=== PATIENT | female | born 1970 | race African-American/Black ===

== ENCOUNTER 2024-07-26 17:50 | Inpatient (IN) | payer OTHER ==
[~2024-07-26] VITALS: Ht 170.2 cm; Wt 85.5 kg
--- NOTE | 2024-07-26 18:26 | ED.PDOC ---
History of present illness HPI Comments 53-year-old female who came to ER for abdominal pain. Patient states for the past week, she has been having abdominal pain radiating up her midsternal area. States she has GERD and she feels like it is acting up again. She is also complaining of headaches, dizziness, excessive urination and thirst. Noted also blurring of vision and oral pain. Claims she was never diagnosed to have diabetes. Blood sugar upon arrival of read tn. Chief Complaint: Abdominal Pain Time Seen by MD: 18:25 History of present illness: Nurses Notes Allergies: Coded Allergies: Morphine (Verified Allergy, Unknown, 07/26/24) Information Source: Patient Mode of Arrival: Ambulatory Timing: Days Duration: Intermittent Prehospital treatment: None [place]: Shaky Symptoms: Anxious, Shaky History of: None Associated signs and symptoms: Headache, Abdominal Pain, Nausea, Blurred Vision Past Medical History PAST MEDICAL HISTORY: Cancer (Breast cancer), HTN, PE Surgical History: Denies all surgeries PATIENT FINANCIAL SERVICES SPECIALIST History: Denies all PATIENT FINANCIAL SERVICES SPECIALIST Hx Family History Family History: Reviewed,noncontributory to illness Social History Smoker: Non-Smoker Alcohol: Denies ETOH Use Drugs: Denies Drug Use Lives In: Home Constitutional: denies: chills, diaphoresis, fatigue, fever, malaise, sweats, weakness, others EENTM: reports: blurred vision, others (oral pain); denies: double vision, ear bleeding, ear discharge, ear drainage, ear pain, ear ringing, eye pain, eye redness, hearing loss, mouth pain, mouth swelling, nasal discharge, nose bleedi ng, nose congestion, nose pain, photophobia, tearing, throat pain, throat swelling, voice changes Respiratory: denies: cough, hemoptysis, orthopnea, SOB at rest, shortness of breath, SOB with excertion, stridor, wheezing, others Cardiovascular: denies: chest pain, dizzy spells, diaphoresis, Dyspnea on exertion, edema, irregular heart beat, left arm pain, lightheadedness, palpitations, PND, syncope, others Gastrointestinal: reports: abdominal pain, nausea; denies: abdomen distended, blood streaked bowels, constipated, diarrhea, dysphagia, difficulty swallowing, hematemesis, melena, poor appetite, poor fluid intake, rectal bleeding, rectal pain, vomiting, others Genitourinary: denies: abnormal vagina bleeding, burning, dyspareunia, dysuria, flank pain, frequency, hematuria, incontinence, pain, , vagina discharge, urgency, others Neurological: reports: dizziness, headache; denies: fainting, left sided numbness, left sided weakness, numbness, paresthesia, pre-existing deficit, right sided numbness, right sided weakness, seizure, speech problems, tingling, tremors, weakness, others Musculoskeletal: denies: back pain, gout, joint pain, joint swelling, muscle pain, muscle stiffness, neck pain, others Integumetry: denies: bruises, change in color, change in hair/nails, dryness, laceration, lesions, lumps, rash, wounds, others Allergic/Immunocompromised: denies: Difficulty Healing, Frequent Infections, Hives, Itching, others Hematologic/Lymphatic: denies: anemia, blood clots, easy bleeding, easy bruising, swollen glands, others Endocrine: reports: excessive thirst, excessive urination; denies: excessive hunger, excessive sweating, flushing, intolerance to cold, intolerance to heat, unexplained weight gain, unexplained weight loss, others Psychiatric: denies: anxiety, bipolar disorder, depression, hopeless, panic disorder, schizophrenia, sleepless, suicidal, others Physical Exam General Appearance: Moderate Distress, Normal HEENT: Normal ENT Inspection, Pharynx Normal, TMs Normal Neck: Full Range of Motion, Non-Tender, Normal, Normal Inspection Respiratory: Chest Non-Tender, Lungs Clear, No Accessory Muscle Use, No Respiratory Distress, Normal Breath Sounds Cardiovascular: No Edema, No JVD, No Murmur, No Gallop, Normal Peripheral Pulses, Tachycardia Breast Exam: Deferred Gastrointestinal: No Organomegaly, Non Tender, No Pulsatile Mass, Normal Bowel Sounds, Soft Genitalia: Deferred Pelvic: Deferred Rectal: Deferred Extremities: No calf tenderness, Normal capillary refill, Normal inspection, Normal range of motion, Non-tender, No pedal edema Musculoskeletal : Apperance: Normal Neurologic: Alert, semiconductor bonder II-XII nml as Tested, No Motor Deficits, Normal Affect, Normal Mood, No Sensory Deficits Cerebellar Function: Normal Reflexes: Normal Skin: Dry, Normal Color, Warm Lymphatic: No Adenopathy Was a procedure done? Was a procedure done?: No Differential Diagnosis (DM) Differential Diagnosis: Dehydration, DKA, Electrolyte Abnormality, Gastritis, Gastroenteritis, Hyperglycemia, UTI X-Ray, Labs, Meds, VS Vital Signs Date Time Temp Pulse Resp B/P (MAP) Pulse Ox O2 Delivery O2 Flow Rate FiO2 07/26/24 18:21 100 07/26/24 18:16 97.2 111 16 137/93 (108) 96 Lab Test 07/26/24 18:55 07/26/24 18:52 07/26/24 18:30 Range/Units Blood Gas Specimen Type Venous Blood Gas Sample Site Vbg - n/a Blood Gas Patient Temperature 37.0 Arterial Blood Date Drawn [id number] Jarad Test N/a Venous Blood pH 7.381 7.320-7.430 Venous Blood pCO2 at Patient Temp 47.3 38.0-54.0 mmHg Venous Blood pO2 at Patient Temp 37.4 23.0-48.0 mmHg Venous Blood HCO3 27.4 22.0-29.0 mmol/L Venous Blood Base Excess 1.6 -2.0-3.0 mmol/L Blood Gas Liter Flow 0.00 Blood Gas Modality Room air FiO2 % 21.0 Blood Gas Comments POC Glucose > 600 *H 70-106 mg/dl White Blood Count 7.5 4.4-10.8 10^3/uL Red Blood Count 4.52 4.0-5.20 10^6/uL Hemoglobin 14.5 12.2-16.2 g/dL Hematocrit 44.9 36.0-46.0 % Mean Corpuscular Volume 99.4 80.0-100.0 fL Mean Corpuscular Hemoglobin 32.2 H 28.0-32.0 pg Mean Corpuscular Hemoglobin Concent 32.4 32.0-36.0 g/dL Red Cell Distribution Width 15.1 H 11.8-14.3 % Platelet Count 210 140-450 10^3/uL Mean Platelet Volume 8.9 6.9-10.8 fL Neutrophils (%) (Auto) 70.3 37.0-80.0 % Lymphocytes (%) (Auto) 21.9 10.0-50.0 % Monocytes (%) (Auto) 6.7 0.0-12.0 % Eosinophils (%) (Auto) 0.0 0.0-7.0 % Basophils (%) (Auto) 1.1 0.0-2.0 % Neutrophils # (Auto) 5.2 1.6-8.6 10 ^3/uL Lymphocytes # (Auto) 1.6 0.4-5.4 10 ^3/uL Monocytes # (Auto) 0.5 0-1.3 10 ^3/uL Eosinophils # (Auto) 0 0-0.8 10 ^3/uL Basophils # (Auto) 0.1 0-0.2 10 ^3/uL Nucleated Red Blood Cells 0.1 % Prothrombin Time 10.9 9.3-11.8 sec Prothrombin Time INR 1.03 0.9-1.15 Activated Partial Thromboplast Time 25.2 24.5-34.5 SEC Sodium Level 122 L 136-145 mmol/L Potassium Level 4.9 3.5-5.1 mmol/L Chloride Level 88 L 98-107 mmol/L Carbon Dioxide Level 26 20-31 mmol/L Anion Gap 8 5-15 Blood Urea Nitrogen 16 9-23 mg/dL Creatinine 1.81 H 0.550-1.02 mg/dL Glomerular Filtration Rate Calc 33 >90 mL/min BUN/Creatinine Ratio 8.8 L 10.0-20.0 Serum Glucose 1212 *H 74-106 mg/dL Calcium Level 10.2 8.7-10.4 mg/dL Magnesium Level 2.0 1.6-2.6 mg/dL Total Bilirubin 0.5 0.2-1.0 mg/dL Aspartate Amino Transferase (AST) 11 L 13-40 U/L Alanine Aminotransferase (ALT) 23 7-40 U/L Alkaline Phosphatase 193 H 46-116 U/L Total Protein 7.6 5.7-8.2 g/dL Albumin 4.7 3.2-4.8 g/dL Current Medications Medications (Trade) Dose Ordered Sig/Toya Route Start Time Stop Time Status Last Admin Sodium Chloride 1,000 ml @ 1,000 mls/hr Q1H ONCE IVB 07/26/24 18:30 07/26/24 19:29 07/26/24 18:59 Insulin Human Regular (InsuLIN R) 4 units ONCE ONCE IV 07/26/24 18:30 07/26/24 18:31 DC 07/26/24 19:00 Famotidine (Pepcid Injection) 20 mg ONCE ONCE IV 07/26/24 18:30 07/26/24 18:31 DC 07/26/24 18:59 Time of 1ST Reevaluation: 18:21 Reevaluation 1ST: Unchanged Time of 2ND Reevaluation: 19:29 Reevaluation 2ND: Unchanged Patient Education/Counseling: Diagnosis, Treatment Family Education/Counseling: No Family Present Departure 1 Departure Time of Disposition: 19:30 Impression: Primary Impression: Acute renal injury Additional Impressions: New onset type 2 diabetes mellitus Hyperglycemia Disposition: 09 ADMITTED INPATIENT Admit to: Med Surg Condition: Guarded Critical Care Note Critical Care Time?: Yes (35 min-critical care time only) Critical care comment: Total critical care time: Approximately 36 minutes Due to a high probability of clinically significant, life threatening deterioration, the patient required my highest level of preparedness to intervene emergently and I personally spent this critical care time directly and personally managing the patient. This critical care time included obtaining a history; examining the patient; pulse oximetry; ordering and review of studies; arranging urgent treatment with development of a management plan; evaluation of patient's response to treatment; frequent reassessment; and, discussions with other providers. This critical care time was performed to assess and manage the high probability of imminent, life-threatening deterioration that could result in multi-organ failure. It was exclusive of separately billable procedures and treating other patients. Stability Stability form required: No Heart Score Heart Score: Heart Score Response (Comments) Value History N/A 0 EKG N/A 0 Age N/A 0 Risk Factors N/A 0 Troponin N/A 0 Total 0 I personally scribed for MIKE DE LA O MD ([email or web address]) on 07/26/24 at 18:26. Electronically submitted by Remigio Berumen ([email or web address]). MIKE DE LA O MD Jul 26, 2024 18:26
[2024-07-26 18:50] LABS: Basophils # (auto) 0.1 10 ^3/uL (0-0.2); Basophils % (auto) 1.1 % (0.0-2.0); Eosinophils # (auto) 0 10 ^3/uL (0-0.8); Hematocrit 44.9 % (36.0-46.0); Hemoglobin 14.5 g/dL (12.2-16.2); Lymphocytes # (auto) 1.6 10 ^3/uL (0.4-5.4); Lymphocytes % (auto) 21.9 % (10.0-50.0); Mean Corpuscular Hemoglobin 32.2 pg (28.0-32.0); Mean Corpuscular Hgb Conc. 32.4 g/dL (32.0-36.0); Mean Corpuscular Volume 99.4 fL (80.0-100.0); Monocytes # (auto) 0.5 10 ^3/uL (0-1.3); Monocytes % (auto) 6.7 % (0.0-12.0); Neutrophils # (auto) 5.2 10 ^3/uL (1.6-8.6); Neutrophils % (auto) 70.3 % (37.0-80.0); Nucleated Red Blood Cells % 0.1 %; Platelet Count (auto) 210 10^3/uL (140-450); Red Blood Cells 4.52 10^6/uL (4.0-5.20); Red Cell Distribution Width 15.1 % (11.8-14.3); White Blood Cell 7.5 10^3/uL (4.4-10.8)
--- NOTE | 2024-07-26 18:54 | DVH ---
CT BRAIN WITHOUT CONTRAST HISTORY: severe headache TECHNIQUE: Axial scans were obtained from the skull base through the vertex without contrast. Sagitta l and coronal reformats were generated. One or more of the following radiation dose reduction techniq ues were used for this examination: automated exposure control, adjustment of the mA and/or kV accord ing to patient size, use of iterative reconstruction technique. COMPARISON: None FINDINGS: No acute intracranial hemorrhage or evidence of large vessel territorial infarction identified at thi s time. No midline shift. The basilar cisterns are patent. Mojica-white differentiation appears relat ively preserved. Small right posterior ethmoidal sinus mucosal polyp versus retention cyst. The other paranasal sinuse s mastoid air cells are grossly clear. No grossly displaced calvarial abnormalities identified. IMPRESSION: No acute intracranial findings.
[2024-07-26] MEDS: SODIUM CHLORIDE 0.9% 1,000 ML IVB ONE (18:59)
[2024-07-26] MEDS: FAMOTIDINE (10MG/ML) 2ML VL IV ONE (18:59)
[2024-07-26] MEDS: InsuLIN REG 1unit/0.01ml Soln (100units/ml) IV ONE (19:00)
[2024-07-26 19:07] LABS: INR 1.03 (0.9-1.15); Partial Thromboplastin Time 25.2 SEC (24.5-34.5); Prothrombin Time 10.9 sec (9.3-11.8)
[2024-07-26 19:12] LABS: Alanine Aminotransferase 23 U/L (7-40); Albumin 4.7 g/dL (3.2-4.8); Anion Gap 8 (5-15); BUN/Creatinine Ratio 8.8 (10.0-20.0); Bilirubin, Total 0.5 mg/dL (0.2-1.0); Blood Urea Nitrogen 16 mg/dL (9-23); Calcium 10.2 mg/dL (8.7-10.4); Carbon Dioxide 26 mmol/L (20-31); Potassium 4.9 mmol/L (3.5-5.1); Total Protein 7.6 g/dL (5.7-8.2)
[2024-07-26 19:23] LABS: Alkaline Phosphatase 193 U/L (46-116); Aspartate Aminotransferase 11 U/L (13-40); Chloride 88 mmol/L (98-107); Sodium 122 mmol/L (136-145)
[2024-07-26 19:24] LABS: Glucose 1212 mg/dL (74-106)
[2024-07-26] MEDS: SODIUM CHLORIDE 0.9% 1,000 ML IV ONE (19:30)
[2024-07-26] MEDS ORDERED: MORPHINE SULFATE INJ 2 MG/ml SYRG IV PRN (20:00)
[2024-07-26] MEDS ORDERED: DEXTROSE (50%) 50ML SYRG IV PRN (20:00)
[2024-07-26] MEDS ORDERED: NITROGLYCERIN 0.4 MG SL TAB SL PRN (20:00)
[2024-07-26] MEDS ORDERED: TEMAZEPAM 15 MG CAP PO PRN (20:00)
[2024-07-26 20:21] VITALS: PULSE 88; RESP 16; O2SAT 97
[2024-07-26 20:35] LABS: Urine Bacteria None Seen /hpf (None Seen)
[2024-07-26] MEDS: ACCU-CHEK COMFORT CURVE STRIP VI SCH (20:42)
[2024-07-26 20:52] LABS: Urine Blood Negative /uL (Negative); Urine Clarity Clear (Clear); Urine Color Colorless (Yellow); Urine Protein, UAD Negative (Negative); Urine Specific Gravity 1.028 (1.001-1.035); Urine Urobilinogen Normal (Negative); Urine WBC <1 /hpf (0 - 5); Urine pH 5.5 (5.0-9.0)
[2024-07-26 22:40] VITALS: PULSE 71; RESP 25; O2SAT 92
[2024-07-26] MEDS: INSULIN DRIP 100 UNIT/100ML 100 ML IV SCH (22:54)
[2024-07-27] MEDS: ONDANSETRON HCL 4 MG/2 ML VIAL IV PRN (00:04)
[2024-07-27] MEDS: ACETAMINOPHEN 325 MG TAB PO PRN (00:04)
[2024-07-27 01:09] LABS: Chloride 100 mmol/L (98-107); Potassium 3.9 mmol/L (3.5-5.1)
[2024-07-27 01:11] LABS: Anion Gap 12 (5-15); Carbon Dioxide 22 mmol/L (20-31)
[2024-07-27 01:12] LABS: Calcium 10.5 mg/dL (8.7-10.4); Sodium 134 mmol/L (136-145)
[2024-07-27 01:33] LABS: Glucose 463 mg/dL (74-106)
[2024-07-27 01:49] LABS: BUN/Creatinine Ratio 11.9 (10.0-20.0); Blood Urea Nitrogen 12 mg/dL (9-23)
[2024-07-27] MEDS: SODIUM CHLORIDE 0.9% 1,000 ML IV SCH (02:00)
[2024-07-27] MEDS: GABAPENTIN 100 MG CAP PO ONE (02:21)
[2024-07-27 03:44] LABS: Basophils # (auto) 0.1 10 ^3/uL (0-0.2); Basophils % (auto) 1.3 % (0.0-2.0); Eosinophils # (auto) 0 10 ^3/uL (0-0.8); Eosinophils % (auto) 0.1 % (0.0-7.0); Hematocrit 42.4 % (36.0-46.0); Hemoglobin 14.5 g/dL (12.2-16.2); Lymphocytes # (auto) 2.9 10 ^3/uL (0.4-5.4); Lymphocytes % (auto) 30.7 % (10.0-50.0); Mean Corpuscular Hgb Conc. 34.1 g/dL (32.0-36.0); Mean Corpuscular Volume 93.8 fL (80.0-100.0); Monocytes # (auto) 0.8 10 ^3/uL (0-1.3); Monocytes % (auto) 8.2 % (0.0-12.0); Neutrophils # (auto) 5.6 10 ^3/uL (1.6-8.6); Neutrophils % (auto) 59.7 % (37.0-80.0); Nucleated Red Blood Cells % 0.1 %; Platelet Count (auto) 224 10^3/uL (140-450); Red Blood Cells 4.52 10^6/uL (4.0-5.20); Red Cell Distribution Width 14.7 % (11.8-14.3); White Blood Cell 9.5 10^3/uL (4.4-10.8)
[2024-07-27] MEDS ORDERED: DEXTROSE (50%) 50ML SYRG IV PRN ×2 (03:45→12:45)
--- NOTE | 2024-07-27 03:52 | DVHHP2 ---
History of Present Illness Reason for Visit: Generalized weakness History of Present Illness 53-year-old female presents for evaluation of generalized weakness. Patient reports a one-week history of worsening fatigue with associated excessive thirst, dry mouth and constant urination. Reports occasional nausea. No cardiac or respiratory complaints for Past Medical History Hypertension, pulmonary embolism breast cancer Past Surgical History Denies Family History Noncontributory Smoke: No ALCOHOL: none Drugs: None Lives: with Family Review of Systems Review of Systems Review of systems are currently negative otherwise addressed in HPI. Allergies: Coded Allergies: Morphine (Verified Allergy, Unknown, 07/26/24) Medications Current Medications Medications Dose Ordered Sig/Toya Route Start Time Stop Time Status Last Admin Dose Admin Sodium Chloride 1,000 ml @ 150 mls/hr Q6H40M IV 07/27/24 02:00 07/27/24 02:00 150 MLS/HR Insulin Human (Reg)/Sodium Chloride 100 ml @ 0.5 mls/hr Q24H IV 07/26/24 20:00 07/26/24 22:54 6 MLS/HR Dextrose 50 ml UD PRN IV 07/26/24 20:00 Diagnostic Test (Pha) 1 strip Q90MIN 07/26/24 21:00 07/27/24 03:29 1 STRIP Temazepam 15 mg QHSP PRN PO 07/26/24 20:00 Ondansetron HCl 4 mg Q4HP PRN IV 07/26/24 20:00 07/27/24 00:04 4 MG Acetaminophen 650 mg Q6HP PRN PO 07/26/24 20:00 07/27/24 00:04 650 MG Nitroglycerin 0.4 mg Q5MINP PRN SL 07/26/24 20:00 Morphine Sulfate 2 mg Q30M PRN IV 07/26/24 20:00 Hold Exam Vital Signs Vital Signs Date Time Temp Pulse Resp B/P (MAP) Pulse Ox O2 Delivery O2 Flow Rate FiO2 07/27/24 02:00 75 18 105/80 (88) 98 07/27/24 01:09 98.9 07/26/24 22:40 Room Air* 0 21 Exam Gen: 53-year-old female in mild distress Skin: Warm, dry, normal color and texture, no rash. HEENT: Normocephalic atraumatic, mucous membranes moist and pink. Neck: Cervical and supraclavicular nodes normal without enlargement, trachea is midline, thyroid gland is normal without masses. Pulmonary: Clear to auscultation and percussion bilaterally. Cardiac: Regular rate and rhythm. No murmur Abdomen: Soft, nontender, nondistended, bowel sounds present all 4 quadrants, no guarding, no rigidity, no organomegaly. Extremities: No cyanosis, clubbing, no edema Neuro: Cranial nerves II through XII grossly intact, normal affect and speech, no focal motor deficits. Labs/Xrays ORDERING PHYSICIAN: MIKE DE LA O MD PROCEDURE(s): HWOCT - HEAD WITHOUT CONTRAST REASON: severe headache ORDER NUMBER(s): [id number], ACCESSION NUMBER(s): [id number] CT BRAIN WITHOUT CONTRAST HISTORY: severe headache TECHNIQUE: Axial scans were obtained from the skull base through the vertex without contrast. Sagittal and coronal reformats were generated. One or more of the following radiation dose reduction techniques were used for this examination: automated exposure control, adjustment of the mA and/or kV according to patient size, use of iterative reconstruction technique. COMPARISON: None FINDINGS: No acute intracranial hemorrhage or evidence of large vessel territorial infarction identified at this time. No midline shift. The basilar cisterns are patent. Mojica-white differentiation appears relatively preserved. Small right posterior ethmoidal sinus mucosal polyp versus retention cyst. The other paranasal sinuses mastoid air cells are grossly clear. No grossly displaced calvarial abnormalities identified. IMPRESSION: No acute intracranial findings. Labs Test 07/27/24 03:30 07/27/24 03:28 07/26/24 20:00 07/26/24 18:55 Range/Units White Blood Count 9.5 # 4.4-10.8 10^3/uL Red Blood Count 4.52 4.0-5.20 10^6/uL Hemoglobin 14.5 12.2-16.2 g/dL Hematocrit 42.4 36.0-46.0 % Mean Corpuscular Volume 93.8 # 80.0-100.0 fL Mean Corpuscular Hemoglobin 32.0 28.0-32.0 pg Mean Corpuscular Hemoglobin Concent 34.1 32.0-36.0 g/dL Red Cell Distribution Width 14.7 H 11.8-14.3 % Platelet Count 224 140-450 10^3/uL Mean Platelet Volume 8.3 6.9-10.8 fL Neutrophils (%) (Auto) 59.7 37.0-80.0 % Lymphocytes (%) (Auto) 30.7 10.0-50.0 % Monocytes (%) (Auto) 8.2 0.0-12.0 % Eosinophils (%) (Auto) 0.1 0.0-7.0 % Basophils (%) (Auto) 1.3 0.0-2.0 % Neutrophils # (Auto) 5.6 1.6-8.6 10 ^3/uL Lymphocytes # (Auto) 2.9 0.4-5.4 10 ^3/uL Monocytes # (Auto) 0.8 0-1.3 10 ^3/uL Eosinophils # (Auto) 0 0-0.8 10 ^3/uL Basophils # (Auto) 0.1 0-0.2 10 ^3/uL Nucleated Red Blood Cells 0.1 % POC Glucose 176 H 70-106 mg/dl Urine Color Colorless Yellow Urine Clarity Clear Clear Urine pH 5.5 5.0-9.0 Urine Specific [place] 1.028 1.001-1.035 Urine Protein Negative Negative Urine Ketones Negative Negative Urine Blood Negative Negative /uL Urine Nitrite Negative Negative Urine Bilirubin Negative Negative Urine Urobilinogen Normal Negative mg/dL Urine Leukocyte Esterase Negative Negative /uL Urine RBC 1 0 - 4 /hpf Urine WBC <1 0 - 5 /hpf Urine Squamous Epithelial Cells Few <5 /hpf Urine Bacteria None seen None Seen /hpf Urine Glucose 4+ H Normal mg/dL Blood Gas Specimen Type Venous Blood Gas Sample Site Vbg - n/a Blood Gas Patient Temperature 37.0 Arterial Blood Date Drawn [id number] Jarad Test N/a Venous Blood pH 7.381 7.320-7.430 Venous Blood pCO2 at Patient Temp 47.3 38.0-54.0 mmHg Venous Blood pO2 at Patient Temp 37.4 23.0-48.0 mmHg Venous Blood HCO3 27.4 22.0-29.0 mmol/L Venous Blood Base Excess 1.6 -2.0-3.0 mmol/L Blood Gas Liter Flow 0.00 Blood Gas Modality Room air FiO2 % 21.0 Blood Gas Comments Test 07/26/24 18:30 Range/Units Prothrombin Time 10.9 9.3-11.8 sec Prothrombin Time INR 1.03 0.9-1.15 Activated Partial Thromboplast Time 25.2 24.5-34.5 SEC Hemoglobin A1c 10.3 H <5.7 % A1C Serum Osmolality 338 H 278-298 mOsm/kg Magnesium Level 2.0 1.6-2.6 mg/dL Beta-Hydroxybutyric Acid 0.217 < 0.4 mmol/L Assessment/Plan Assessment/Plan Assessment Hyperglycemic hyperosmolar state Uncontrolled diabetes mellitus Acute kidney injury Plan Admit the patient to [facility] to the hospitalist Insulin protocol Maintenance IV fluids NPO Continue treatment per orders. Total critical care time excluding procedures performed is 50 minutes. Plan discussed with: Patient My Orders Orders - SOFIA URIARTE Procedure Category Date Status Time Insulin Drip Protocol AWILDA 07/26/24 In Process Sodium Chloride 0.9% PHA 07/27/24 In Process 02:00 Insulin Drip 100 PHA 07/26/24 In Process Unit/100ml (Myxredlin 20:00 Dextrose 50% Syringe PHA 07/26/24 In Process 20:00 Glucose Blood PHA 07/26/24 In Process (Accu-Chek Comfort 21:00 Basic Metabolic Panel LAB 07/27/24 Logged 07:48 Basic Metabolic Panel LAB 07/27/24 Logged 13:48 Neurological AWILDA 07/26/24 In Process Assessment 19:48 Vs/Hemodynamics AWILDA 07/26/24 In Process 19:48 Admit ADMIT 07/26/24 Transmitted 19:48 Temazepam (Restoril) PHA 07/26/24 In Process 20:00 Ondansetron Hcl PHA 07/26/24 In Process (Zofran) 20:00 Comprehensive LAB 07/27/24 In Process Metabolic Panel 04:00 Npo (Nothing By DIET 07/27/24 Transmitted Mouth) Diet Breakfast Condition: Serious AWILDA 07/26/24 In Process 19:48 Acetaminophen Tablet PHA 07/26/24 In Process (Tylenol Tablet) 20:00 Bedrest With Bathroom AWILDA 07/26/24 In Process Privileg 19:48 Nitroglycerin PHA 07/26/24 In Process Sublingual (Ntrostat 20:00 Morphine Sulfate PHA 07/26/24 In Process Injection 20:00 Stat Ekg For Chest AWILDA 07/26/24 In Process Pain 19:48 Notify Of Changes [facility] 07/26/24 In Process From Base 19:48 Golf Starter And Ranger For [facility] 07/26/24 In Process 24 Hours 19:48 Emergency Dysrhythmia [facility] 07/26/24 In Process Protocol 19:48 Rhythm Strips Once [facility] 07/26/24 In Process Every Shift 19:48 Oxygen By Nasal RT 07/26/24 Transmitted Cannula 19:48 Date of Service: Jul 26, 2024 Billing Provider: SOFIA URIARTE Common Visit Codes: [id number] CARE 30-74 MIN SOFIA URIARTE Jul 27, 2024 03:52
[2024-07-27 04:03] LABS: Alanine Aminotransferase 22 U/L (7-40); Albumin 4.5 g/dL (3.2-4.8); Anion Gap 7 (5-15); BUN/Creatinine Ratio 15.4 (10.0-20.0); Blood Urea Nitrogen 16 mg/dL (9-23); Calcium 10.1 mg/dL (8.7-10.4); Carbon Dioxide 27 mmol/L (20-31); Chloride 106 mmol/L (98-107); Potassium 3.6 mmol/L (3.5-5.1); Sodium 140 mmol/L (136-145)
[2024-07-27 04:04] LABS: Bilirubin, Total 0.6 mg/dL (0.2-1.0); Total Protein 6.9 g/dL (5.7-8.2)
[2024-07-27] MEDS: InsuLIN REG 1unit/0.01ml Soln (100units/ml) SC SCH ×2 (04:10→16:07)
[2024-07-27] MEDS: ACCU-CHEK COMFORT CURVE STRIP VI SCH ×2 (04:10→15:54)
[2024-07-27 04:21] LABS: Alkaline Phosphatase 127 U/L (46-116); Aspartate Aminotransferase 11 U/L (13-40); Glucose 179 mg/dL (74-106)
[2024-07-27 08:00] VITALS: PULSE 83; RESP 21; O2SAT 94
[2024-07-27 08:04] LABS: Chloride 102 mmol/L (98-107); Potassium 4.2 mmol/L (3.5-5.1)
[2024-07-27 08:05] LABS: Anion Gap 7 (5-15); Calcium 9.6 mg/dL (8.7-10.4); Carbon Dioxide 27 mmol/L (20-31); Sodium 136 mmol/L (136-145)
[2024-07-27 08:10] LABS: BUN/Creatinine Ratio 15.5 (10.0-20.0); Blood Urea Nitrogen 17 mg/dL (9-23); Glucose 370 mg/dL (74-106)
[2024-07-27 10:50] VITALS: BP 131/88; PULSE 84; RESP 17; TEMP 98.7; O2SAT 97
--- NOTE | 2024-07-27 12:43 | DVHPN2 ---
Reviewed: Care Plan, H&P, Labs, Medications, Previous Orders, Radiology Changes from previous H/P or p: No Changes Objective Vitals Vital Signs Date Time Temp Pulse Resp B/P (MAP) Pulse Ox O2 Delivery O2 Flow Rate FiO2 07/27/24 10:50 98.7 84 17 131/88 (102) 97 98.7 07/27/24 08:00 Room Air* 0 21 Intake/Output Intake and Output 07/27/24 07:00 Intake Total 1174.75 ml Balance 1174.75 ml Intake IV Total 1174.75 ml Medications Current Medications Medications Dose Ordered Sig/Toya Route Start Time Stop Time Status Last Admin Dose Admin Dextrose 50 ml UD PRN IV 07/26/24 20:00 Temazepam 15 mg QHSP PRN PO 07/26/24 20:00 Ondansetron HCl 4 mg Q4HP PRN IV 07/26/24 20:00 07/27/24 00:04 4 MG Acetaminophen 650 mg Q6HP PRN PO 07/26/24 20:00 07/27/24 00:04 650 MG Nitroglycerin 0.4 mg Q5MINP PRN SL 07/26/24 20:00 Morphine Sulfate 2 mg Q30M PRN IV 07/26/24 20:00 Hold Diagnostic Test (Pha) 1 strip IQ4HR 07/27/24 04:00 07/27/24 11:29 1 STRIP Dextrose 50 ml UD PRN IV 07/27/24 03:45 Diagnostic Test (Pha) 1 strip IQ4HR 07/27/24 16:00 UNV Insulin Human Regular IQ4HR SC 07/27/24 16:00 UNV Dextrose 50 ml UD PRN IV 07/27/24 12:45 UNV Insulin Glargine 30 units HS SC 07/27/24 22:00 UNV Laboratory Results Laboratory Tests 07/27/24 03:30 07/27/24 07:36 Chemistry Test 07/26/24 18:30 07/27/24 00:30 07/27/24 03:30 07/27/24 07:36 Albumin 4.7 g/dL (3.2-4.8) 4.5 g/dL (3.2-4.8) Calcium Level 10.2 mg/dL (8.7-10.4) 10.5 mg/dL (8.7-10.4) H 10.1 mg/dL (8.7-10.4) 9.6 mg/dL (8.7-10.4) Magnesium Level 2.0 mg/dL (1.6-2.6) Total Protein 7.6 g/dL (5.7-8.2) 6.9 g/dL (5.7-8.2) Coagulation Test 07/26/24 18:30 Prothrombin Time 10.9 sec (9.3-11.8) Prothrombin Time INR 1.03 (0.9-1.15) Activated Partial Thromboplast Time 25.2 SEC (24.5-34.5) LFT Test 07/26/24 18:30 07/27/24 03:30 Alanine Aminotransferase (ALT) 23 U/L (7-40) 22 U/L (7-40) Alkaline Phosphatase 193 U/L (46-116) H 127 U/L (46-116) H Aspartate Amino Transferase (AST) 11 U/L (13-40) L 11 U/L (13-40) L Total Bilirubin 0.5 mg/dL (0.2-1.0) 0.6 mg/dL (0.2-1.0) HgA1c, TSH Test 07/26/24 18:30 Hemoglobin A1c 10.3 % A1C (<5.7) H Urinalysis Test 07/26/24 20:00 Urine Color Colorless (Yellow) Urine Clarity Clear (Clear) Urine pH 5.5 (5.0-9.0) Urine Specific [place] 1.028 (1.001-1.035) Urine Protein Negative (Negative) Urine Ketones Negative (Negative) Urine Blood Negative /uL (Negative) Urine Nitrite Negative (Negative) Urine Bilirubin Negative (Negative) Urine Urobilinogen Normal mg/dL (Negative) Urine Leukocyte Esterase Negative /uL (Negative) Urine RBC 1 /hpf (0 - 4) Urine WBC <1 /hpf (0 - 5) Urine Squamous Epithelial Cells Few /hpf (<5) Urine Bacteria None seen /hpf (None Seen) Urine Glucose 4+ mg/dL (Normal) H Blood Gas Results Test 07/26/24 18:55 FiO2 % 21.0 Labs and/or images reviewed: Labs reviewed by me, Image(s) reviewed by me Assessment/Plan Assessment/Plan Acute hyperglycemia blood sugar more than 600 Acute metabolic encephalopathy Acute generalized weakness New onset uncontrolled diabetes A1c 10.5: Aggressive Insulin sliding scale and Lantus, diabetic education History of PE start back on home medication Eliquis 5 mg p.o. b.i.d. Hypertension History of breast cancer Time spent 50 minutes Advanced care planning time 20 minutes Patient is full code Plan discussed with: Patient My Orders Orders - SHANT ROBERSON MD Procedure Category Date Status Time Glucose Blood PHA 07/27/24 Logged (Accu-Chek Comfort 16:00 Insulin R (Human) PHA 07/27/24 Logged (Insulin R) 16:00 Dextrose 50% Syringe PHA 07/27/24 Logged 12:45 Insulin Lantus PHA 07/27/24 Logged (Glargine) (Lantus) 22:00 *Rn Dba REFER 07/27/24 Transmitted Referral 12:32 (Nf) Eliquis PHA 07/27/24 Transmitted 22:00 Date of Service: Jul 27, 2024 Billing Provider: SHANT ROBERSON MD Common Visit Codes: [id number] INP/OBS CARE(HIGH) Secondary Visit Codes: [id number] CARE PLAN 30 MINUTES SHANT ROBERSON MD Jul 27, 2024 12:43
[2024-07-27 13:00] VITALS: BP 118/67; PULSE 73; RESP 17; TEMP 98.3; O2SAT 97
--- NOTE | 2024-07-27 13:49 | ECG ---
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
[2024-07-27 15:01] LABS: Chloride 102 mmol/L (98-107); Potassium 4.1 mmol/L (3.5-5.1); Sodium 137 mmol/L (136-145)
[2024-07-27 15:02] LABS: Anion Gap 7 (5-15); Carbon Dioxide 28 mmol/L (20-31)
[2024-07-27 15:03] LABS: Calcium 9.4 mg/dL (8.7-10.4)
[2024-07-27 15:08] LABS: BUN/Creatinine Ratio 18.8 (10.0-20.0); Blood Urea Nitrogen 18 mg/dL (9-23)
[2024-07-27 15:18] LABS: Glucose 400 mg/dL (74-106)
[2024-07-27] MEDS: PANTOPRAZOLE 40 MG TAB PO SCH (15:53)
[2024-07-27 16:51] VITALS: BP 120/71; PULSE 65; RESP 17; TEMP 99; O2SAT 99
[2024-07-27 20:00] VITALS: PULSE 66; RESP 16
[2024-07-27 21:00] VITALS: BP 130/86; PULSE 71; RESP 20; TEMP 98.3; O2SAT 96
[2024-07-27] MEDS: APIXABAN 5 MG TAB PO SCH (21:53)
[2024-07-27] MEDS: GABAPENTIN 300 MG CAP PO SCH (21:53)
[2024-07-27] MEDS: INSULIN LANTUS (GLARGINE) 1 /0.01ml (100units/ml) SC SCH (23:52)
[2024-07-28] VITALS (8 sets, daily range): BP systolic 119–139; BP diastolic 68–95; PULSE 53–82; RESP 18–21; TEMP 97.3–98.5; O2SAT 96–98
--- NOTE | 2024-07-28 12:00 | DVHPN2 ---
Reviewed: Care Plan, H&P, Labs, Medications, Previous Orders, Radiology Changes from previous H/P or p: No Changes Objective Vitals Vital Signs Date Time Temp Pulse Resp B/P (MAP) Pulse Ox O2 Delivery O2 Flow Rate FiO2 07/28/24 09:00 98.5 82 18 124/68 (86) 98 98.5 07/28/24 08:06 Room Air* 0 21 Intake/Output Intake and Output 07/28/24 07:00 Intake Total 850 ml Balance 850 ml Intake Oral 850 ml # Voids 6 Medications Current Medications Medications Dose Ordered Sig/Toya Route Start Time Stop Time Status Last Admin Dose Admin Temazepam 15 mg QHSP PRN PO 07/26/24 20:00 Ondansetron HCl 4 mg Q4HP PRN IV 07/26/24 20:00 07/27/24 00:04 4 MG Acetaminophen 650 mg Q6HP PRN PO 07/26/24 20:00 07/27/24 00:04 650 MG Nitroglycerin 0.4 mg Q5MINP PRN SL 07/26/24 20:00 Morphine Sulfate 2 mg Q30M PRN IV 07/26/24 20:00 Hold Diagnostic Test (Pha) 1 strip IQ4HR 07/27/24 16:00 07/28/24 08:03 1 STRIP Insulin Human Regular IQ4HR SC 07/27/24 16:00 07/27/24 23:53 16 UNITS Dextrose 50 ml UD PRN IV 07/27/24 12:45 Insulin Glargine 30 units HS SC 07/27/24 22:00 07/27/24 23:52 30 UNITS Apixaban 5 mg BID PO 07/27/24 22:00 07/28/24 09:51 5 MG Pantoprazole Sodium 40 mg BID@0600,1700 PO 07/27/24 17:00 07/28/24 06:27 40 MG Gabapentin 300 mg TID PO 07/27/24 22:00 07/27/24 21:53 300 MG Laboratory Results Laboratory Tests 07/27/24 03:30 07/27/24 14:22 Chemistry Test 07/27/24 14:22 Calcium Level 9.4 mg/dL (8.7-10.4) Urinalysis Test 07/26/24 20:00 Urine Color Colorless (Yellow) Urine Clarity Clear (Clear) Urine pH 5.5 (5.0-9.0) Urine Specific [place] 1.028 (1.001-1.035) Urine Protein Negative (Negative) Urine Ketones Negative (Negative) Urine Blood Negative /uL (Negative) Urine Nitrite Negative (Negative) Urine Bilirubin Negative (Negative) Urine Urobilinogen Normal mg/dL (Negative) Urine Leukocyte Esterase Negative /uL (Negative) Urine RBC 1 /hpf (0 - 4) Urine WBC <1 /hpf (0 - 5) Urine Squamous Epithelial Cells Few /hpf (<5) Urine Bacteria None seen /hpf (None Seen) Urine Glucose 4+ mg/dL (Normal) H Labs and/or images reviewed: Labs reviewed by me, Image(s) reviewed by me Assessment/Plan Assessment/Plan Acute hyperglycemia blood sugar more than 600 Acute metabolic encephalopathy Acute generalized weakness New onset uncontrolled diabetes A1c 10.5: Aggressive Insulin sliding scale and Lantus, diabetic education History of PE start back on home medication Eliquis 5 mg p.o. b.i.d. Hypertension History of breast cancer Time spent 50 minutes Advanced care planning time 20 minutes Patient is full code Patient is seen feels better today We will DC tomorrow Plan discussed with: Patient My Orders Orders - SHANT ROBERSON MD Procedure Category Date Status Time Glucose Blood PHA 07/27/24 In Process (Accu-Chek Comfort 16:00 Insulin R (Human) PHA 07/27/24 In Process (Insulin R) 16:00 Dextrose 50% Syringe PHA 07/27/24 In Process 12:45 Insulin Lantus PHA 07/27/24 In Process (Glargine) (Lantus) 22:00 *Rn Sales Technician REFER 07/27/24 Transmitted Referral 12:32 Apixaban (Eliquis) PHA 07/27/24 In Process 22:00 Code Status CODE 07/27/24 Transmitted 12:41 Pantoprazole Tablet PHA 07/27/24 In Process (Protonix Tablet) 17:00 Gabapentin Capsule PHA 07/27/24 In Process (Neurontin Capsule) 22:00 Date of Service: Jul 28, 2024 Billing Provider: SHANT ROBERSON MD Common Visit Codes: [id number] INP/OBS CARE(HIGH) SHANT ROBERSON MD Jul 28, 2024 12:00
[2024-07-29] VITALS (8 sets, daily range): BP systolic 126–145; BP diastolic 78–86; PULSE 60–74; RESP 14–20; TEMP 98–98.9; O2SAT 95–98
--- NOTE | 2024-07-29 13:37 | DVHPN2 ---
Reviewed: Care Plan, H&P, Labs, Medications, Previous Orders, Radiology Changes from previous H/P or p: No Changes Objective Vitals Vital Signs Date Time Temp Pulse Resp B/P (MAP) Pulse Ox O2 Delivery O2 Flow Rate FiO2 07/29/24 12:57 98.8 60 17 142/79 (100) 96 98.8 07/29/24 08:00 Room Air* 0 21 Intake/Output Intake and Output 07/29/24 07:00 Intake Total 1460 ml Balance 1460 ml Intake Oral 1460 ml # Voids 3 # Bowel Movements 1 Medications Current Medications Medications Dose Ordered Sig/Toya Route Start Time Stop Time Status Last Admin Dose Admin Temazepam 15 mg QHSP PRN PO 07/26/24 20:00 Ondansetron HCl 4 mg Q4HP PRN IV 07/26/24 20:00 07/27/24 00:04 4 MG Acetaminophen 650 mg Q6HP PRN PO 07/26/24 20:00 07/27/24 00:04 650 MG Nitroglycerin 0.4 mg Q5MINP PRN SL 07/26/24 20:00 Morphine Sulfate 2 mg Q30M PRN IV 07/26/24 20:00 Hold Diagnostic Test (Pha) 1 strip IQ4HR 07/27/24 16:00 07/29/24 12:26 1 STRIP Insulin Human Regular IQ4HR SC 07/27/24 16:00 07/29/24 12:37 20 UNITS Dextrose 50 ml UD PRN IV 07/27/24 12:45 Insulin Glargine 30 units HS SC 07/27/24 22:00 07/28/24 21:00 30 UNITS Apixaban 5 mg BID PO 07/27/24 22:00 07/29/24 09:26 5 MG Pantoprazole Sodium 40 mg BID@0600,1700 PO 07/27/24 17:00 07/29/24 05:00 40 MG Gabapentin 300 mg TID PO 07/27/24 22:00 07/27/24 21:53 300 MG Laboratory Results Laboratory Tests 07/27/24 03:30 07/27/24 14:22 Urinalysis Test 07/26/24 20:00 Urine Color Colorless (Yellow) Urine Clarity Clear (Clear) Urine pH 5.5 (5.0-9.0) Urine Specific [place] 1.028 (1.001-1.035) Urine Protein Negative (Negative) Urine Ketones Negative (Negative) Urine Blood Negative /uL (Negative) Urine Nitrite Negative (Negative) Urine Bilirubin Negative (Negative) Urine Urobilinogen Normal mg/dL (Negative) Urine Leukocyte Esterase Negative /uL (Negative) Urine RBC 1 /hpf (0 - 4) Urine WBC <1 /hpf (0 - 5) Urine Squamous Epithelial Cells Few /hpf (<5) Urine Bacteria None seen /hpf (None Seen) Urine Glucose 4+ mg/dL (Normal) H Labs and/or images reviewed: Labs reviewed by me, Image(s) reviewed by me Assessment/Plan Assessment/Plan Acute hyperglycemia blood sugar more than 600 Acute metabolic encephalopathy Acute generalized weakness New onset uncontrolled diabetes A1c 10.5: Aggressive Insulin sliding scale and Lantus, diabetic education History of PE start back on home medication Eliquis 5 mg p.o. b.i.d. Hypertension History of breast cancer Time spent 50 minutes Advanced care planning time 20 minutes Patient is full code Patient is seen feels better today We will DC tomorrow Plan discussed with: Patient Date of Service: Jul 29, 2024 Billing Provider: SHANT ROBERSON MD Common Visit Codes: [id number] INP/OBS CARE(HIGH) SHANT ROBERSON MD Jul 29, 2024 13:37
[2024-07-30 01:00] VITALS: BP 128/82; PULSE 62; RESP 18; TEMP 98.7; O2SAT 96
[2024-07-30 05:00] VITALS: BP 128/77; PULSE 68; RESP 18; TEMP 99.3; O2SAT 98
[2024-07-30 08:30] VITALS: BP 125/67; PULSE 57; RESP 14; TEMP 98.1; O2SAT 96
[2024-07-30 12:40] VITALS: BP 120/72; PULSE 61; RESP 14; TEMP 98.2; O2SAT 99
--- NOTE | 2024-07-30 12:59 | DVHPN2 ---
Reviewed: Care Plan, H&P, Labs, Medications, Previous Orders, Radiology Changes from previous H/P or p: No Changes Objective Vitals Vital Signs Date Time Temp Pulse Resp B/P (MAP) Pulse Ox O2 Delivery O2 Flow Rate FiO2 07/30/24 12:40 98.2 61 14 120/72 (88) 99 98.2 07/29/24 20:00 Room Air* 0 21 Intake/Output Intake and Output 07/30/24 07:00 Intake Total 760 ml Balance 760 ml Intake Oral 760 ml # Voids 5 # Bowel Movements 3 Medications Current Medications Medications Dose Ordered Sig/Toya Route Start Time Stop Time Status Last Admin Dose Admin Temazepam 15 mg QHSP PRN PO 07/26/24 20:00 Ondansetron HCl 4 mg Q4HP PRN IV 07/26/24 20:00 07/27/24 00:04 4 MG Acetaminophen 650 mg Q6HP PRN PO 07/26/24 20:00 07/27/24 00:04 650 MG Nitroglycerin 0.4 mg Q5MINP PRN SL 07/26/24 20:00 Morphine Sulfate 2 mg Q30M PRN IV 07/26/24 20:00 Hold Diagnostic Test (Pha) 1 strip IQ4HR 07/27/24 16:00 07/30/24 11:48 1 STRIP Insulin Human Regular IQ4HR SC 07/27/24 16:00 07/30/24 03:44 4 UNITS Dextrose 50 ml UD PRN IV 07/27/24 12:45 Insulin Glargine 30 units HS SC 07/27/24 22:00 07/29/24 22:23 30 UNITS Apixaban 5 mg BID PO 07/27/24 22:00 07/30/24 10:38 5 MG Pantoprazole Sodium 40 mg BID@0600,1700 PO 07/27/24 17:00 07/30/24 05:48 40 MG Gabapentin 300 mg TID PO 07/27/24 22:00 07/27/24 21:53 300 MG Laboratory Results Laboratory Tests 07/27/24 03:30 07/27/24 14:22 Urinalysis Test 07/26/24 20:00 Urine Color Colorless (Yellow) Urine Clarity Clear (Clear) Urine pH 5.5 (5.0-9.0) Urine Specific [place] 1.028 (1.001-1.035) Urine Protein Negative (Negative) Urine Ketones Negative (Negative) Urine Blood Negative /uL (Negative) Urine Nitrite Negative (Negative) Urine Bilirubin Negative (Negative) Urine Urobilinogen Normal mg/dL (Negative) Urine Leukocyte Esterase Negative /uL (Negative) Urine RBC 1 /hpf (0 - 4) Urine WBC <1 /hpf (0 - 5) Urine Squamous Epithelial Cells Few /hpf (<5) Urine Bacteria None seen /hpf (None Seen) Urine Glucose 4+ mg/dL (Normal) H Labs and/or images reviewed: Labs reviewed by me, Image(s) reviewed by me Assessment/Plan Assessment/Plan Acute hyperglycemia blood sugar more than 600 Acute metabolic encephalopathy Acute generalized weakness New onset uncontrolled diabetes A1c 10.5: Aggressive Insulin sliding scale and Lantus, diabetic education History of PE start back on home medication Eliquis 5 mg p.o. b.i.d. Hypertension History of breast cancer Plan discussed with: Patient My Orders Orders - SHANT ROBERSON MD Procedure Category Date Status Time Transfer Orders XFER 07/30/24 Transmitted 03:23 Discontinue Tele AWILDA 07/30/24 In Process 03:23 Date of Service: Jul 30, 2024 Billing Provider: SHANT ROBERSON MD Common Visit Codes: [id number] INP/OBS CARE(HIGH) SHANT ROBERSON MD Jul 30, 2024 12:59
[2024-07-30] MEDS ORDERED: METF-372 PO (13:02)
--- NOTE | 2024-07-30 13:10 | DVHDS2 ---
Discharge Summary Date of Admission Jul 26, 2024 at 19:48 Date of Discharge: Jul 30, 2024 Admitting Diagnosis Generalized weakness Wounds: None Labs/Diagnostic Data: Laboratory Results Test 07/30/24 08:06 07/27/24 14:22 07/27/24 07:36 07/27/24 03:30 POC Glucose 100 mg/dl (70-106) Sodium Level 137 mmol/L (136-145) Potassium Level 4.1 mmol/L (3.5-5.1) Chloride Level 102 mmol/L (98-107) Carbon Dioxide Level 28 mmol/L (20-31) Anion Gap 7 (5-15) Blood Urea Nitrogen 18 mg/dL (9-23) Creatinine 0.96 mg/dL (0.550-1.02) Glomerular Filtration Rate Calc 70 mL/min (>90) BUN/Creatinine Ratio 18.8 (10.0-20.0) Serum Glucose 400 mg/dL (74-106) Calcium Level 9.4 mg/dL (8.7-10.4) Troponin I High Sensitivity 5 ng/L (</=34) White Blood Count 9.5 10^3/uL (4.4-10.8) Red Blood Count 4.52 10^6/uL (4.0-5.20) Hemoglobin 14.5 g/dL (12.2-16.2) Hematocrit 42.4 % (36.0-46.0) Mean Corpuscular Volume 93.8 fL (80.0-100.0) Mean Corpuscular Hemoglobin 32.0 pg (28.0-32.0) Mean Corpuscular Hemoglobin Concent 34.1 g/dL (32.0-36.0) Red Cell Distribution Width 14.7 % (11.8-14.3) Platelet Count 224 10^3/uL (140-450) Mean Platelet Volume 8.3 fL (6.9-10.8) Neutrophils (%) (Auto) 59.7 % (37.0-80.0) Lymphocytes (%) (Auto) 30.7 % (10.0-50.0) Monocytes (%) (Auto) 8.2 % (0.0-12.0) Eosinophils (%) (Auto) 0.1 % (0.0-7.0) Basophils (%) (Auto) 1.3 % (0.0-2.0) Neutrophils # (Auto) 5.6 10 ^3/uL (1.6-8.6) Lymphocytes # (Auto) 2.9 10 ^3/uL (0.4-5.4) Monocytes # (Auto) 0.8 10 ^3/uL (0-1.3) Eosinophils # (Auto) 0 10 ^3/uL (0-0.8) Basophils # (Auto) 0.1 10 ^3/uL (0-0.2) Nucleated Red Blood Cells 0.1 % Total Bilirubin 0.6 mg/dL (0.2-1.0) Aspartate Amino Transferase (AST) 11 U/L (13-40) Alanine Aminotransferase (ALT) 22 U/L (7-40) Alkaline Phosphatase 127 U/L (46-116) Total Protein 6.9 g/dL (5.7-8.2) Albumin 4.5 g/dL (3.2-4.8) Test 07/26/24 20:00 07/26/24 18:55 07/26/24 18:30 Urine Color Colorless (Yellow) Urine Clarity Clear (Clear) Urine pH 5.5 (5.0-9.0) Urine Specific [place] 1.028 (1.001-1.035) Urine Protein Negative (Negative) Urine Ketones Negative (Negative) Urine Blood Negative /uL (Negative) Urine Nitrite Negative (Negative) Urine Bilirubin Negative (Negative) Urine Urobilinogen Normal mg/dL (Negative) Urine Leukocyte Esterase Negative /uL (Negative) Urine RBC 1 /hpf (0 - 4) Urine WBC <1 /hpf (0 - 5) Urine Squamous Epithelial Cells Few /hpf (<5) Urine Bacteria None seen /hpf (None Seen) Urine Glucose 4+ mg/dL (Normal) Blood Gas Specimen Type Venous Blood Gas Sample Site Vbg - n/a Blood Gas Patient Temperature 37.0 Arterial Blood Date Drawn [id number] Jarad Test N/a Venous Blood pH 7.381 (7.320-7.430) Venous Blood pCO2 at Patient Temp 47.3 mmHg (38.0-54.0) Venous Blood pO2 at Patient Temp 37.4 mmHg (23.0-48.0) Venous Blood HCO3 27.4 mmol/L (22.0-29.0) Venous Blood Base Excess 1.6 mmol/L (-2.0-3.0) Blood Gas Liter Flow 0.00 Blood Gas Modality Room air FiO2 % 21.0 Blood Gas Comments Prothrombin Time 10.9 sec (9.3-11.8) Prothrombin Time INR 1.03 (0.9-1.15) Activated Partial Thromboplast Time 25.2 SEC (24.5-34.5) Hemoglobin A1c 10.3 % A1C (<5.7) Serum Osmolality 338 mOsm/kg (278-298) Magnesium Level 2.0 mg/dL (1.6-2.6) Beta-Hydroxybutyric Acid 0.217 mmol/L (< 0.4) Other Laboratory Tests 07/27/24 14:22 07/27/24 03:30 Brief Hx & Hospital Course: 53-year-old female with no prior history of diabetes came in complaining of generalized weakness found to have blood sugars more than 600 and found to be in acute hyperglycemia treated with the aggressive insulin sliding scale and Lantus diabetic education was given A1c 10.5 history of PE takes Eliquis and takes gabapentin for her peripheral neuropathy blood sugars controlled and at the time of discharge. Prescription given for metformin. Patient was advised follow up with the primary dr in two weeks to add insulin if metformin alone is not able to control the blood sugars. Prescription given for diabetic supplies Consults/Reason for consult None Operations or Procedures None Condition at Discharge: Fair Final Diagnosis/Problems List Acute hyperglycemia blood sugar more than 600 Acute metabolic encephalopathy Acute generalized weakness New onset uncontrolled diabetes A1c 10.5: Aggressive Insulin sliding scale and Lantus, diabetic education History of PE start back on home medication Eliquis 5 mg p.o. b.i.d. Hypertension History of breast cancer Discharge Disposition: Home Discharge Instruct/Medications Diet: Consistent carbohydrate Activity: Light activity Follow Up/Referral: Check blood sugar 3 times a day before meals and take medications as prescribed Follow up with your primary Dr in two weeks If Blood sugars are not controlled with metformin alone your primary doctor might have to add insulin Medications: Metformin 1000 mg p.o. b.i.d. 180 Transmitted to the pharmacy 39 (Time Taken For discharge summary 39 minutes) Discharge Statement: "Patient was advised to return to the ER or call 911 if any headaches, dizziness, shortness of breath, chest pain, abdominal pain, bleeding, fevers, or worsening of medical condition. Patient was counseled about treatment plan, medications, possible side effects, patientverbalized understanding. All questions were answered to the best of my ability. This discharge took greater then 30 minutes in planning, reviewing documentation, counseling the patient, and discussing with other team members." ASSESSMENT ASSESSMENT Hospital Course Improved Assessment Acute hyperglycemia blood sugar more than 600 Acute metabolic encephalopathy Acute generalized weakness New onset uncontrolled diabetes A1c 10.5: Aggressive Insulin sliding scale and Lantus, diabetic education History of PE start back on home medication Eliquis 5 mg p.o. b.i.d. Hypertension History of breast cancer Date of Service: Jul 30, 2024 Billing Provider: SHANT ROBERSON MD Common Visit Codes: [id number] DISCH DAY >30min SHANT ROBERSON MD Jul 30, 2024 13:10
[2024-07-30 14:44] VITALS: BP 128/72; PULSE 61; RESP 18; TEMP 98.2; O2SAT 99
== END 2024-07-30 15:25 | disposition home or self-care (01) | DRG 420 ==
LOC: ER 17:50 → OVERFLOW 19:48 → TELE-WESTW 07-27 10:59 → WEST WING 07-30 03:21
PROVIDERS: ADMIT Nurse Practitioner; ATTEND Family Medicine
DX: E11.00 Type 2 diabetes mellitus with hyperosmolarity without nonketotic hyperglycemic-hyperosmolar coma (NKHHC) (principal); N17.0 Acute kidney failure with tubular necrosis; G93.41 Metabolic encephalopathy; I10 Essential (primary) hypertension; R68.2 Dry mouth, unspecified; E11.65 Type 2 diabetes mellitus with hyperglycemia; K21.9 Gastro-esophageal reflux disease without esophagitis; E11.42 Type 2 diabetes mellitus with diabetic polyneuropathy; Z88.5 Allergy status to narcotic agent; Z85.3 Personal history of malignant neoplasm of breast; Z86.711 Personal history of pulmonary embolism; Z79.01 Long term (current) use of anticoagulants
CPT/HCPCS: 36415; 36600; 70450; 80048; 80053; 81001; 82010; 82805; 82962; 83036; 83735; 83930; 84484; 85025; 85610; 85730; 93005; 99291; G0378; J1815; J2405; J3490

== ENCOUNTER 2025-03-10 00:34 | Emergency (ER) | payer OTHER ==
[~2025-03-10] VITALS: Ht 167.6 cm; Wt 68.0 kg
[~2025-03-10 00:34] MED LIST: METF-372 PO
[2025-03-10 00:44] VITALS: BP 117/83; PULSE 83; RESP 18; TEMP 99; O2SAT 97
== END 2025-03-10 06:24 | disposition left against medical advice (07) ==
LOC: EDBD 00:34 → ER 00:34
DX: M79.602 Pain in left arm (principal); M79.605 Pain in left leg; Z53.21 Procedure and treatment not carried out due to patient leaving prior to being seen by health care provider